=== PATIENT | male | born 1955 | race Hispanic/Latino ===

== ENCOUNTER 2017-11-04 12:16 | Emergency (ER) | payer OTHER ==
[2017-11-04] MEDS ORDERED: LIDOCAINE HCL MPF 1% 5ML VIAL ONE (12:31)
[2017-11-04] MEDS ORDERED: TETANUS/DIPHTHERIA TOXOID [ADULT] 0.5 ML VIAL IM ONE (13:35)
[2017-11-04] MEDS ORDERED: SODIUM CHLORIDE 0.9% 100 ML IV ONE (14:26)
[2017-11-04] MEDS ORDERED: CEFAZOLIN SODIUM 1 GM VIAL ONE (14:26)
== END 2017-11-04 15:10 | disposition home or self-care (01) ==
LOC: EDH 12:16
DX: S51.812A Laceration without foreign body of left forearm, initial encounter (principal); I10 Essential (primary) hypertension; W45.8XXA Other foreign body or object entering through skin, initial encounter; Y93.89 Activity, other specified; Y92.69 Other specified industrial and construction area as the place of occurrence of the external cause; Y99.8 Other external cause status
CPT/HCPCS: 12031; 73090; 90471; 90714; 96365; 99284; J0690; J3490

== ENCOUNTER 2017-11-13 12:07 | Emergency (ER) | payer OTHER | END 2017-11-13 12:58 | disposition home or self-care (01) | LOC: EDH 12:07 | DX: S51.812D Laceration without foreign body of left forearm, subsequent encounter (principal); I10 Essential (primary) hypertension; X58.XXXD Exposure to other specified factors, subsequent encounter | CPT/HCPCS: 99281 ==

== ENCOUNTER 2018-09-23 20:18 | Emergency (ER) | payer OTHER ==
[2018-09-23] MEDS ORDERED: TETANUS/DIPHTHERIA TOXOID [ADULT] 0.5 ML VIAL IM ONE (20:40)
[2018-09-23] MEDS ORDERED: OCTYL 2-CYANOACRYLATE 1 EACH TP ONE (20:56)
[2018-09-23] MEDS ORDERED: LIDOCAINE HCL 1% 20 ML VIAL ONE (21:27)
== END 2018-09-23 21:56 | disposition home or self-care (01) ==
LOC: EDH 20:18
DX: S61.211A Laceration without foreign body of left index finger without damage to nail, initial encounter (principal); I10 Essential (primary) hypertension; W26.8XXA Contact with other sharp object(s), not elsewhere classified, initial encounter; Y93.89 Activity, other specified; Y92.89 Other specified places as the place of occurrence of the external cause; Y99.8 Other external cause status
CPT/HCPCS: 12002; 73130; 90714

== ENCOUNTER 2018-10-03 17:31 | Emergency (ER) | payer OTHER | END 2018-10-03 18:04 | disposition home or self-care (01) | LOC: EDH 17:31 | DX: S61.412D Laceration without foreign body of left hand, subsequent encounter (principal); I10 Essential (primary) hypertension; X58.XXXD Exposure to other specified factors, subsequent encounter | CPT/HCPCS: 99281 ==